=== PATIENT | male | born 1970 | race Two or more races ===

== ENCOUNTER 2017-05-04 10:37 | Emergency (ER) | payer OTHER ==
--- NOTE | ~2017-05-04 | CR72 ---
[facility] A Service of [facility] & [facility] RADIOLOGY TEXT RESULTS PATIENT: DESTINEE ARVIZU LOCATION: [facility] : 72 UNIT #: [id number] AGE: [address]: Todd Ross MD SEX: M ORDER DR: [id number] [place], [place] [address] [id number] E MR#: [id number] Acc #: [id number] NAME: DESTINEE ARVIZU : 1970 SEX: M STUDY DATE/TIME: 05/04/2017 11:39 UNIT: [facility] ROOM: STUDY DESCRIPTION: CR Chest Single View Portable Attending Physician: Todd Ross M.D. Ordering Physician: Todd Ross M.D. Primary Care Physician: Primary Care Physician No MEDICAL IMAGING REPORT This report is preliminary unless electronic signature is present EXAM Portable chest radiograph INDICATION Chest pain and left arm pain starting today. FINDINGS Heart size is within normal limits. Lungs do appear somewhat hyperexpanded which may reflect underlying emphysematous change. No pneumothorax, pleural effusion or acute infiltrate is seen. Dictated by... Juliette Olivares M.D. THIS IS AN ELECTRONICALLY VERIFIED REPORT Juliette Olivares M.D. at 05/06/2017 3:26 PM JAXON/ryan TD: 05/06/2017 08:38 JOB #: [id number] MEDICAL IMAGING REPORT Page 1 of 1 COPY
--- NOTE | ~2017-05-04 | EKG ---
PATIENT: DESTINEE ARVIZU UNIT #: [id number] Ventricular Rate: 64 BPM Atrial Rate: 64 BPM P-R Interval: 152 ms QRS Duration: 82 ms Q-T Interval: 376 ms QTC Calculation(Bezet): 387 ms P [place]: 54 degrees Calculated R [place]: 73 degrees Calculated T [place]: 58 degrees Diagnosis Line: Normal sinus rhythm Diagnosis Line: Normal ECG Diagnosis Line: No previous ECGs available Diagnosis Line: Confirmed by RADAH VELEZ MD ([id number]) on Diagnosis Line: 05/05/2017 7:22:53 AM INTERPRETING MD: BARAK
[2017-05-04 11:33] LABS: BASOPHIL% 0.8 % (0-2.5); EOSINOPHIL# 0.2 X10e3 (0-0.7); EOSINOPHIL% 5.9 % (0.0-7.0); HEMATOCRIT 42.4 % (38.0-50.0); HEMOGLOBIN 13.8 gm/dL (13.0-16.0); LYMPHOCYTE# 1.6 X10e3 (1.0-3.5); LYMPHOCYTE% 40.9 % (17.0-45.0); MEAN CELL VOLUME 91.2 FL (83-96); MEAN CORPUSCULAR HEMOGLOBIN 29.7 PG (28-34); MEAN CORPUSCULAR HGB CONC 32.6 g/dL (30-36); MEAN PLATELET VOLUME 9.8 FL (6.5-11.5); MONOCYTE# 0.4 X10e3 (0-1.0); MONOCYTE% 9.9 % (3.0-12.0); NEUTROPHIL# 1.6 X10e3 (1.5-7.1); NEUTROPHIL% 42.5 % (40-75); PLATELET COUNT 155 X10e3 (140-420); RED BLOOD COUNT 4.65 X10e (3.90-5.60); RED CELL DISTRIBUTION WIDTH 12.7 % (11.0-15.5); WHITE BLOOD COUNT 3.9 X10e3 (4.0-10.5)
[2017-05-04 11:35] LABS: POC - CKMB <1.0 ng/mL (0.0-7.9); POC - TROPONIN <0.05 ng/mL (<=0.05)
[2017-05-04 11:39] LABS: DIFF IND NO
[2017-05-04 12:06] LABS: ALBUMIN SERUM 4.4 g/dL (3.5-5.0); BILIRUBIN, DIRECT 0.1 mg/dL (0.0-0.2); BILIRUBIN,INDIRECT 0.6 mg/dL (0.0-0.9); BILIRUBIN,TOTAL 0.7 mg/dL (0.2-2.0); BUN/CREATININE RATIO 17.77; CALCIUM SERUM 9.2 mg/dL (8.4-10.2); CREATININE SERUM 0.9 mg/dL (0.6-1.4); GLOM FILT RATE Estimated 102.1 mL/min (>60); POTASSIUM 3.8 mmol/L (3.5-5.1); PROTEIN TOTAL SERUM 7.1 g/dL (6.0-8.3)
[2017-05-04 14:01] LABS: POC - TROPONIN <0.05 ng/mL (<=0.05)
== END 2017-05-04 15:18 | disposition home or self-care (01) ==
LOC: CED 10:37
PROVIDERS: Emergency Medicine
DX: R07.2 Precordial pain (principal)
CPT/HCPCS: 36415; 71010; 80048; 80076; 82553; 84484; 85025; 93005; 99285

== ENCOUNTER 2017-06-23 10:15 | Emergency (ER) | payer OTHER ==
[~2017-06-23] VITALS: Ht 182.9 cm; Wt 81.6 kg
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
== END 2017-06-23 11:58 | disposition home or self-care (01) ==
LOC: CFTX 10:15 → CED 10:15 → CFTX 11:17
DX: S16.1XXA Strain of muscle, fascia and tendon at neck level, initial encounter (principal); V49.00XA Driver injured in collision with unspecified motor vehicles in nontraffic accident, initial encounter; Y92.410 Unspecified street and highway as the place of occurrence of the external cause
CPT/HCPCS: 72040; 99284